=== PATIENT | male | born 1965 | race Caucasian/White ===

== ENCOUNTER 2017-02-08 06:59 | Emergency (ER) | payer OTHER, MEDICAID ==
[2017-02-08 07:07] VITALS: TEMP 98.2
[2017-02-08] MEDS ORDERED: ONDANSETRON 4 MG/2 ML VIAL IVP ONE ×2 (07:18→09:18)
[2017-02-08] MEDS ORDERED: NS 1,000 ML IV ONE ×2 (07:18→09:17)
--- NOTE | 2017-02-08 07:49 | EDPHY ---
H & P Time Seen by Provider: 02/08/17 07:45 HPI/ROS: CHIEF COMPLAINT: Nausea and vomiting HISTORY OF PRESENT ILLNESS: This patient is a 52 year old man, with a history of alcohol syndrome, presenting with acute nausea and vomiting, onset at 3am this morning. Vomited once. He denies fever, abdominal pain, hematemesis, or diarrhea. The patient is insistent that he must be tested for influenza. He received an influenza vaccine this year. The patient denies cough, fever, congestion, or myalgias. REVIEW OF SYSTEMS: Constitutional: No fever, no chills Eyes: No visual changes ENT: No sore throat Respiratory: No cough, no shortness of breath Cardiac: No chest pain Gastrointestinal: nausea, vomiting, no abdominal pain Genitourinary: No hematuria, no dysuria Musculoskeletal: No leg pain or swelling Skin: No rash Neurological: No headache, no numbness, no weakness Psychiatric: No depression Past Medical/Surgical History: alcohol syndrome, seizures, duodenal ulcer, cholecystectomy, appendectomy , hypothyroidism Social History: Non-smoker, lives in [facility] Smoking Status: Never smoked Physical Exam: General Appearance: Alert, somewhat demanding, non-toxic Eyes: Pupils equal and round, no conjunctival pallor ENT, Mouth: Mucous membranes moist Neck: Normal inspection Respiratory: Lungs are clear to auscultation Cardiovascular: Regular rate and rhythm Gastrointestinal: Abdomen is soft and non-tender Neurological: A&O, nonfocal exam Skin: Warm and dry, no rash Extremities: normal inspection Psychiatric: Mood and affect normal Constitutional: Initial Vital Signs Temperature (C) 36.8 C 02/08/17 07:02 Heart Rate 70 02/08/17 07:02 Respiratory Rate 16 02/08/17 07:02 Blood Pressure 164/94 H 02/08/17 07:02 O2 Sat (%) 98 02/08/17 07:02 O2 Delivery Mode Room Air Allergies/Adverse Reactions: Penicillins Allergy (Intermediate, Verified 10/07/16 06:41) Hives Home Medications: Medication Instructions Recorded Nature Throid 16.25 mg PO DAILY 10/07/16 Pantoprazole Sodium [Protonix] 40 mg PO BID #60 tablet. 10/08/16 Medical Decision Making ED Course/Re-evaluation: This patient presents with 5 hours of nausea and vomiting. Abdomen is non- tender on exam. He denies hematemesis. An IV has been established. He received 1L IV normal saline and 4mg IV Zofran. He continues to feel nauseated. 10mg IV Reglan ordered. 0915: Re-evaluation. The patient has had no recurrent episodes of vomiting. He is requesting to be admitted, although I do not see a medically necessary reason for admission at this time. I have requested case management to see the patient. Pt is safe/stable for d/c. No further vomiting. Able to tolerate oral fluids. Abd soft and NT. Differential Diagnosis: includes though not limited to severe dehydration, SBO, appy, pancreatitis, cholecystitis - Data Points Laboratory Results: Laboratory Results 02/08/17 09:15 02/08/17 08:30 Medications Given: Discontinued Medications Sodium Chloride (Ns) 1,000 mls @ 0 mls/hr IV ONCE ONE PRN Reason: Wide Open Stop: 02/08/17 07:19 Last Admin: 02/08/17 07:24 Dose: 1,000 mls Sodium Chloride (Ns) 1,000 mls @ 0 mls/hr IV ONCE ONE PRN Reason: Wide Open Stop: 02/08/17 09:18 Last Admin: 02/08/17 09:23 Dose: 1,000 mls Metoclopramide HCl (Reglan Injection) 10 mg IVP EDNOW ONE Stop: 02/08/17 07:54 Last Admin: 02/08/17 08:10 Dose: 10 mg Ondansetron HCl (Zofran) 4 mg IVP EDNOW ONE Stop: 02/08/17 07:19 Last Admin: 02/08/17 07:24 Dose: 4 mg Ondansetron HCl (Zofran) 4 mg IVP EDNOW ONE Stop: 02/08/17 09:19 Last Admin: 02/08/17 09:24 Dose: 4 mg Departure - Departure Disposition: Home, Routine, Self-Care Clinical Impression: Nausea & vomiting Qualifiers: Vomiting type: unspecified Vomiting Intractability: non-intractable Qualified Code(s): R11.2 - Nausea with vomiting, unspecified Condition: Good Instructions: Acute Nausea and Vomiting (ED) Additional Instructions: Small sips of fluids and gradual diet advancement as tolerated. Return to the emergency department for fever, abdominal pain, intractable vomiting, or other concerns. Referrals: Radha Whelan MD [Primary Care Provider] - As per Instructions Report Scribed for: Jaimee Amaro Report Scribed by: Carly Brothers Date of Report: 02/08/17 Time of Report: 07:49 Physician Review and Approval Statement: 02/08/17 07:50 Portions of this note were transcribed by a medical case worker. I personally performed a history, physical exam, medical decision making, and confirmed accuracy of information the transcribed note.
[2017-02-08] MEDS ORDERED: METOCLOPRAMIDE 10 MG/2 ML VIAL IVP ONE (07:53)
[2017-02-08 08:55] LABS: ALANINE AMINOTRANSFERASE 28 IU/L (21-72); ALBUMIN 4.2 g/dL (3.5-5.0); ALKALINE PHOSPHATASE 75 IU/L (38-126); ANION GAP 9 mEq/L (8-16); ASPARTATE AMINOTRANSFERASE 40 IU/L (17-59); BILIRUBIN,TOTAL 1.1 mg/dL (0.1-1.4); BILIRUBIN-CONJUGATED 0.6 mg/dL (0.0-0.5); BILIRUBIN-UNCONJUGATED 0.5 mg/dL (0.0-1.1); CALCIUM 8.5 mg/dL (8.5-10.4); CARBON DIOXIDE 22 mEq/l (22-31); CHLORIDE 110 mEq/L (97-110); CREATININE 0.7 mg/dL (0.7-1.3); GLOMERULAR FILTRATION RATE > 60; GLUCOSE 118 mg/dL (70-100); POTASSIUM 4.4 mEq/L (3.5-5.2); SODIUM 141 mEq/L (134-144); SPECIMEN HEMOLYSIS 114
[2017-02-08 09:25] LABS: % IMMATURE GRANULYOCYTES 0.5 % (0.0-1.1); ABSOLUTE IMMATURE GRANULOCYTES 0.05 10^3/uL (0.00-0.10); ADD DIFF? NO; ADD MORPH? YES; ADD SCAN? NO; ATYPICAL LYMPHOCYTE FLAG 0 (0-99); HEMATOCRIT 41.7 % (40.0-51.0); HEMOGLOBIN 12.9 g/dL (13.7-17.5); LEFT SHIFT FLG 20 (0-99); LIPEMIA HEMOLYSIS FLAG 80 (0-99); MEAN CELL HEMOGLOBIN 22.8 pg (27.9-34.1); MEAN CELL HEMOGLOBIN CONCENTR. 30.9 g/dL (32.4-36.7); MEAN CELL VOLUME 73.5 fL (81.5-99.8); MEAN PLATELET VOLUME 9.2 fL (8.7-11.7); PLATELET CLUMPS FLAG 0 (0-99); PLATELET COUNT 187 10^3/uL (150-400); RED BLOOD CELL COUNT 5.67 10^6/uL (4.40-6.38)
[2017-02-08 09:28] LABS: FRAGMENT RBC FLAG 100 (0-99); RED CELL DISTRIBUTION WIDTH 28.1 % (11.5-15.2)
[2017-02-08 09:34] VITALS: RESP 18
[2017-02-08 09:53] LABS: HYPOCHROMIA 1+; MICROCYTES 1+
[2017-02-08 09:54] LABS: ELLIPTOCYTES 1+; PLATELET ESTIMATE ADEQUATE (ADEQ); SCHISTOCYTES 1+; TARGET CELLS 1+
[2017-02-08 10:03] VITALS: BP 129/75; PULSE 76; O2SAT 97
== END 2017-02-08 10:06 | disposition home or self-care (01) ==
LOC: EDUNIT#
DX: R11.2 Nausea with vomiting, unspecified (principal)
CPT/HCPCS: 96361; 96374; 96375; 96376; 99284; J2405; J2765

== ENCOUNTER 2017-03-21 01:06 | Emergency (ER) | payer OTHER, MEDICAID ==
[2017-03-21 01:17] VITALS: RESP 16
--- NOTE | 2017-03-21 01:33 | EDPHY ---
H & P Smoking Status: Never smoked Time Seen by Provider: 03/21/17 01:10 HPI/ROS: CHIEF COMPLAINT: Vomiting HISTORY OF PRESENT ILLNESS: 52-year-old male presents to the emergency department by ambulance complaining of vomiting. The patient states "I 8 too much putting and Pizza and now I am vomiting". He denies abdominal pain or back pain. Denies urinary symptoms. Denies any reported trauma. The patient has had this problem in the past. The paramedics state that his house is very and kept. He does have some type of home health support although it is not clear what this level is. He does live by himself. He denies reported trauma. He denies chest pain or difficulty breathing. REVIEW OF SYSTEMS: Constitutional: No fever, no chills. Eyes: No double or blurry vision. ENT: No sore throat. Respiratory: No cough, no shortness of breath. Cardiac: No chest pain. Gastrointestinal: Vomiting. No diarrhea. No abdominal pain. Genitourinary: No dysuria. Musculoskeletal: No neck or back pain. Skin: No rashes. Neurological: No headache. (Judy Olvera) Past Medical/Surgical History: alcohol syndrome, seizure disorder, cholecystectomy, appendectomy, hypothyroidism (Judy Olvera) Social History: Single and lives alone (Judy Olvera) Physical Exam: General Appearance: Alert, no distress. No visible signs of trauma to his head. Eyes: Pupils equal and round. Extraocular motions are all intact. ENT: Mouth: Mucous membranes moist. Respiratory: No wheezing, rhonchi, or rales, lungs are clear to auscultation. Cardiovascular: Regular rate and rhythm. Gastrointestinal: Abdomen is soft and nontender, no masses, no rebound or guarding, bowel sounds normal. Neurological: Alert and oriented x 3, cranial nerves II through XII grossly intact Skin: Warm and dry, no rashes. Musculoskeletal: Nontender to palpate along the cervical, thoracic or lumbar spine. Neck is supple. Extremities: Full range of motion and no peripheral edema. Psychiatric: Patient is oriented X 3, there is no agitation. (Judy Olvera) Constitutional: Initial Vital Signs Temperature (C) 36.5 C 03/21/17 01:13 Heart Rate 67 03/21/17 01:13 Respiratory Rate 16 03/21/17 01:13 Blood Pressure 147/79 H 03/21/17 01:13 O2 Sat (%) 98 03/21/17 01:13 O2 Delivery Mode Room Air Allergies/Adverse Reactions: Penicillins Allergy (Intermediate, Verified 10/07/16 06:41) Hives Home Medications: Medication Instructions Recorded Nature Throid 16.25 mg PO DAILY 10/07/16 Pantoprazole Sodium [Protonix] 40 mg PO BID #60 tablet. 10/08/16 Laxative 03/21/17 Zantac 03/21/17 Medical Decision Making ED Course/Re-evaluation: 52-year-old male presents to the emergency department by ambulance with nausea and vomiting. The patient states that he ate too much pizza and putting. He has been seen in the past for same symptoms. The case was discussed with Dr. Meg Kahn, secondary supervising physician, who did not directly evaluate the patient but agrees with treatment and plan. The nurse has contacted Rodrick from [facility] who comes to check on the patient and dispense medications. He states that he will check on the patient in the morning. The patient had no recurring vomiting in the emergency department. His abdomen is benign. He is afebrile. He states that he is feeling better. (Judy Olvera) PHYSICIAN DOCUMENTATION: The patient was evaluated and managed by the Physician Shotblaster. My co- signature indicates that I have reviewed this chart and I agree with the findings and plan of care as documented. I am the secondary supervising physician. (Meg Kahn) Differential Diagnosis: Including but not limited to gastritis, bowel obstruction, acute appendicitis ( Judy Olvera) - Data Points Medications Given: Discontinued Medications Ondansetron HCl (Zofran Odt) 4 mg PO EDNOW ONE Stop: 03/21/17 01:57 Last Admin: 03/21/17 01:56 Dose: 4 mg Departure - Departure Disposition: Home, Routine, Self-Care Clinical Impression: Vomiting Qualifiers: Vomiting type: unspecified Vomiting Intractability: non-intractable Nausea presence: with nausea Qualified Code(s): R11.2 - Nausea with vomiting, unspecified Condition: Fair Instructions: Acute Nausea and Vomiting (ED) Additional Instructions: Clear liquids and slowly advance diet as tolerated. Return to the emergency department if he developed recurring problems of vomiting. Please each her food very slowly. Rodrick from [facility] will come see you tomorrow. Referrals: Radha Whelan MD [Primary Care Provider] - As per Instructions
[2017-03-21] MEDS ORDERED: ONDANSETRON DISINTEGRATING 4 MG TAB ONE (01:55)
[2017-03-21] MEDS ORDERED: ONDANSETRON DISINTEGRATING 4 MG TAB PO ONE (01:56)
[2017-03-21 03:40] VITALS: BP 133/74; PULSE 71; TEMP 97.9; O2SAT 96
== END 2017-03-21 03:40 | disposition home or self-care (01) ==
LOC: EDUNIT#
DX: R11.2 Nausea with vomiting, unspecified (principal)

== ENCOUNTER 2017-05-20 21:41 | Emergency (ER) | payer OTHER, MEDICAID ==
--- NOTE | 2017-05-20 21:56 | EDPHY ---
H & P Stated Complaint: headache Time Seen by Provider: 05/20/17 21:44 HPI/ROS: CHIEF COMPLAINT: Headache HISTORY OF PRESENT ILLNESS: 52-year-old male arrives via ambulance after he developed a non thunderclap headache when he was having a bowel movement this evening. He has not taken any analgesia for this headache. Not worst headache of life. No history of chronic headache. Headache described as being in primarily the bifrontal region. Neurologic deficits. No gait instability. No nausea or vomiting. No visual disturbance. No slurred speech. REVIEW OF SYSTEMS: A ten point review of systems was performed and is negative with the exception of the items mentioned in the HPI PAST MEDICAL & SURGICAL HISTORY: alcohol syndrome . Appendectomy. Cholecystectomy. SOCIAL HISTORY:nonsmoker. Lives by himself PHYSICAL EXAM (Prior to examination, patient consented to physical exam, hands were washed and my usual and customary physical exam procedures followed) 1) GENERAL: Well-developed, well-nourished, alert and oriented. Appears to be in no acute distress. 2) HEAD: Normocephalic, atraumatic 3) HEENT: Pupils equal, round, reactive to light bilaterally. Sclera anicteric. No photophobia Nasopharynx, oropharynx, clear, no lesions. 4) NECK: Full range of motion, no meningeal signs. 5) LUNGS: Clear auscultation bilaterally, no wheezes, no rhonchi, no retractions. 6) HEART: Regular rate and rhythm, no murmur, no heave, no gallop. 7) ABDOMEN: No guarding, no rebound, no focal tendernes, 8) MUSCULOSKELETAL: Moving all extremities, no focal areas of tenderness, no obvious trauma. . 9) BACK: No CVA tenderness. 10) SKIN: No rash, no petechiae. 11) Psychiatric: Patient is oriented X 3, there is no agitation. 12) NEURO: Awake, alert, and oriented to person, place and time. Answers questions appropriately. There were no obvious focal neurologic abnormalities. No cerebellar dysfunction. Cranial nerves 2 through to 12 intact. Normal steady gait. Upper and lower extremities bilaterally with strength 5 / 5, reflexes 2+. DIFFERENTIAL DIAGNOSIS: In no particular order, including but not limited to subarachnoid hemorrhage, migraine headache, tension headache and infectious causes such as meningitis, pharyngitis and sinusitis. - Personal History Tetanus Vaccine Date: 2003 - Medical/Surgical History Hx Asthma: No Hx Chronic Respiratory Disease: No Hx Diabetes: No Hx Cardiac Disease: No Hx Renal Disease: No Hx Cirrhosis: No Hx Alcoholism: No Hx HIV/AIDS: No Hx Splenectomy or Spleen Trauma: No Other PMH: alcohol syndrome, urinary incontinence, cholecystectomy and appendectomy, seizures, gastric ulcers, mood disorder nos, intellectual disability (mild), binge eating - Social History Smoking Status: Never smoked Constitutional: Initial Vital Signs Temperature (C) 37.1 C 05/20/17 21:48 Heart Rate 84 05/20/17 21:48 Respiratory Rate 19 05/20/17 21:48 Blood Pressure 139/80 H 05/20/17 21:48 O2 Sat (%) 95 05/20/17 21:48 O2 Delivery Mode Room Air Allergies/Adverse Reactions: Penicillins Allergy (Intermediate, Verified 10/07/16 06:41) Hives Home Medications: Medication Instructions Recorded Nature Throid 16.25 mg PO DAILY 10/07/16 Pantoprazole Sodium [Protonix] 40 mg PO BID #60 tablet. 10/08/16 Laxative 03/21/17 Zantac 03/21/17 Medical Decision Making - Diagnostics Imaging Results: Imaging Impressions Head CT 05/20/17 21:52 Impression: Head CT within normal limits. Results called to JEREL Vaughan. General information for patients regarding this examination can be found at [email or web address]. If you have questions or comments about this report, please contact me at (hospital) or [phone] (cell). Images reviewed myself ED Course/Re-evaluation: I think that subarachnoid hemorrhage, intracranial mass, malignancy, less than likely in this patient at this time. He has a negative CT scan which was performed within 6 hours of the symptom onset and I think that this appropriately excludes subarachnoid hemorrhage. I do not think that the benefits of CT imaging, lumbar puncture, outweigh the risks in this patient.Care and management in consultation with [secondary] supervising physician Dr Nj [ who independently evaluated patient]. - Data Points Medications Given: Discontinued Medications Ibuprofen (Motrin) 800 mg PO EDNOW ONE Stop: 05/20/17 22:29 Last Admin: 05/20/17 22:35 Dose: 800 mg Departure - Departure Disposition: Home, Routine, Self-Care Clinical Impression: Headache Qualifiers: Headache type: unspecified Headache chronicity pattern: acute headache Intractability: not intractable Qualified Code(s): R51 - Headache Condition: Good Instructions: Acute Headache (ED) Additional Instructions: THANK YOU FOR YOUR VISIT TO OUR EMERGENCY DEPARTMENT (ED). YOU WERE SEEN TODAY BECAUSE OF A HEADACHE. YOU MAY HAVE HAD LAB TESTS, A CT SCAN, MRI OR EVEN A LUMBAR PUNCTURE (COMMONLY REFERRED TO A SPINAL TAP). WE CANNOT ALWAYS FIND THE EXACT CAUSE OF YOUR SYMPTOMS DURING YOUR VISIT TO THE ED. RETURN TO THE ED IMMEDIATELY IF YOUR HEADACHE WORSENS, IF YOU DEVELOP A FEVER, NECK PAIN OR NECK STIFFNESS, OR IF YOU BECOME CONFUSED OR ABNORMALLY DROWSY. Referrals: Radha Whelan MD [Medical Doctor] - 1-2 days without fail
[2017-05-20] MEDS ORDERED: IBUPROFEN 200 MG TAB PO ONE (22:28)
[2017-05-20 22:39] VITALS: RESP 20
[2017-05-20 23:14] VITALS: BP 109/72; PULSE 75; TEMP 98.6; O2SAT 93
== END 2017-05-20 23:35 | disposition home or self-care (01) ==
LOC: EDUNIT#
DX: R51 Headache (principal)